=== PATIENT | male | born 1975 | race Caucasian/White ===

== ENCOUNTER 2021-12-21 11:29 | Outpatient (CLI) | payer BC, SELFPAY ==
--- NOTE | 2021-12-21 | CRLHL7_ITS ---
For Patients: As a result of the Century Cures Act, medical imaging exams and procedure reports are released immediately into your electronic medical record. You may view this report before your referring provider. If you have questions, please contact your health care provider. INDICATION: Two days of leg pain. FINDINGS: Right common femoral vein patent and compressible. Patent deep femoral vein and saphenous insertion. Echogenic noncompressible thrombus in the femoral vein through the popliteal vein into the trifurcation vessels. Left common femoral vein patent and compressible with normal color and spectral Doppler appearance. Preferred augmentation on spectral tracing with augmentation. IMPRESSION: Extensive DVT in the right lower extremity from proximal femoral vein into the trifurcation vessels of the calf. Preliminary report provided to the ordering clinician by the broiler supervisor at the time of exam. Ordering clinician paged with final results at the time of dictation 14:30 12/21/2021. Dictated by Rey Burger MD @ 12/21/2021 2:33:25 PM (Electronically Signed)
== END 2021-12-21 11:30 | disposition home or self-care (01) ==
LOC: US 11:31
PROVIDERS: PCP Internal Medicine; Visit Provider Family Medicine
DX: M79.604 Pain in right leg (principal); I82.411 Acute embolism and thrombosis of right femoral vein
CPT/HCPCS: 93971

== ENCOUNTER 2022-01-16 08:51 | Outpatient (CLI) | payer BC, SELFPAY ==
--- OUTSIDE RECORDS SUMMARY | 2022-01-16 09:08 | XMS_ITS | Encounter Summary ---
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 Administration [place] [address] (Primary Dx) [address] [address] [place], [place] [phone] (Work) [phone] Social History Tobacco Use Types Packs/Day Years Used Date Smoking Tobacco: Former Sex Assigned at Date Recorded Not on file documented as of this encounter Last Filed Vital Signs Vital Sign Reading Time Taken Comments Blood Pressure 134/88 12/16/2017 3:30 PM CDT Pulse 66 12/16/2017 3:30 PM CDT Temperature - - Respiratory Rate 18 12/16/2017 3:30 PM CDT Oxygen Saturation - - Inhaled Oxygen Concentration - - Weight 110 kg (242 lb) 12/16/2017 3:30 PM CDT Height 188 cm (6' 2) 12/16/2017 3:30 PM CDT Body Mass Index 31.07 12/16/2017 3:30 PM CDT documented in this encounter H&P Notes Rey Miller M.D., Ph.D. - 12/16/2017 4:30 PM CDT See scanned FAA exam forms. documented in this encounter Plan of Treatment Scheduled Orders Name Type Priority Associated Diagnoses Order S chedule AUDIOLOGY EVALUATION Audiology Ordered : 12/23/2017 documented as of this encounter Results (ABNORMAL) Urinalysis, Dipstick (12/16/2017 4:37 PM CDT) [facility] Source Midstream 12/16/2017 [facility] 4:[address] [facility] Clarity Slightly Clear 12/16/2017 [facility] Cloudy (A) 4:41 PM [facility] Color Carmenza 12/16/2017 [facility] 4:41 PM [facility] Comment: ----REFERENCE VALUE---- Colorless Yellow [place] Blood Negative Negative 12/16/2017 4:41 PM CDT [facility] Nitrite Negative Negative 12/16/2017 4:41 PM T [facility] Leukocyte Esterase Negative Negative 12/16/2017 4:41 PM CD [facility] Protein Negative mg/dL 12/16/2017 4:41 PM T [facility] Comment: ----REFERENCE VALUE---- Negative Trace Glucose Negative Negative mg/dL 12/16/2017 4:41 PM [facility] Ketones, QI(U) Trace (A) Negative mg/dL 12/16/2017 4:41 PM [facility] Bilirubin Negative Negative 12/16/2017 4:41 PM [facility] pH 5.5 5.0 - 8.0 12/16/2017 4:41 PM [facility] Specific [place] 1.025 1.001 - 1.035 12/16/2017 4:41 PM [facility] Urobilinogen 1.0 0.2 - 1.0 mg/dL 12/16/2017 4:41 PM [facility] Specimen Anatomical Collection Method Collection Time Receive d Time (Source) Location / / Volume Laterality Urine (Urine, 12/16/2017 4:37 PM 12/17/19 18 4:37 Clean Catch) CDT PM CDT Rey Miller M.D., Ph.D. LAB URINE ORDERABLES Performing Organization Address City/State/ZIP Code Phon e Number [facility] [id number] [address] [place] [facility] documented in this encounter Visit Diagnoses Diagnosis Federal Fun Cityation Administration Exam - P rimary documented in this encounter Care Teams University Services Program Associate Relationship Specialty Start Date End Date Elsewhere, Pcp PCP - General Family Medicine 12/16/17 documented as of this encounter
--- OUTSIDE RECORDS SUMMARY | 2022-01-16 09:08 | XMS_ITS | Encounter Summary ---
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 Administration [place] [address] (Primary Dx) [address] [address] [place], [place] [phone] (Work) [phone] Social History Tobacco Use Types Packs/Day Years Used Date Smoking Tobacco: Former Smokeless Tobacco: Never Sex Assigned at Date Recorded Not on file documented as of this encounter Last Filed Vital Signs Vital Sign Reading Time Taken Comments Blood Pressure 135/86 11/24/2018 1:57 PM CDT Pulse 88 11/24/2018 1:57 PM CDT Temperature 36.5 ??C (97.7 ??F) 11/24/2018 1:57 PM CDT Respiratory Rate 16 11/24/2018 1:57 PM CDT Oxygen Saturation 98% 11/24/2018 1:57 PM CDT Inhaled Oxygen Concentration - - Weight 121 kg (267 lb 13.7 oz) 11/24/2018 1:57 PM CDT Height 185.5 cm (6' 1.03) 11/24/2018 1:57 PM CDT Body Mass Index 35.31 11/24/2018 1:57 PM CDT documented in this encounter Progress Notes Rey Miller M.D., Ph.D. 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 documented in this encounter Plan of Treatment Not on filedocumented as of this encounter Results Urinalysis, Dipstick (11/24/2018 1:50 PM CDT) P athologist Signature Source Midstream 11/24/2018 1:53 PM CDT Clarity Clear Clear 11/24/2018 1:53 PM CDT Color Yellow 11/24/2018 1:53 PM CDT Comment: ----REFERENCE VALUE---- Colorless Yellow [place] Blood Negative Negative 11/24/2018 1:53 PM CDT Nitrite Negative Negative 11/24/2018 1:53 PM CDT Leukocyte Esterase Negative Negative 11/24/2018 1:53 PM CD T Protein Negative mg/dL 11/24/2018 1:53 PM CDT Comment: ----REFERENCE VALUE---- Negative Trace Glucose Negative Negative mg/dL 11/24/2018 1:53 PM CDT Ketones, QI(U) Negative Negative mg/dL 11/24/2018 1:53 PM C DT Bilirubin Negative Negative 11/24/2018 1:53 PM CDT pH 7.0 5.0 - 8.0 11/24/2018 1:53 PM CDT Specific [place] 1.020 1.001 - 1.035 11/24/2018 1:53 PM CDT Urobilinogen 0.2 0.2 - 1.0 mg/dL 11/24/2018 1:53 PM CD T Specimen Anatomical Collection Method Collection Time Receive d Time (Source) Location / / Volume Laterality Urine (Urine, 11/24/2018 1:50 PM 11/25/19 1:50 Voided) CDT PM CDT Rey Miller M.D., Ph.D. LAB URINE ORDERABLES Performing Organization Address City/State/ZIP Code Phon e Number [facility] [address] [place] [address] [place] [facility] documented in this encounter Visit Diagnoses Diagnosis Federal iRuleation Administration Exam - P rimary documented in this encounter Care Teams Ehs Manager Relationship Specialty Start Date End Date Elsewhere, Pcp PCP - General Family Medicine 12/16/17 documented as of this encounter
--- OUTSIDE RECORDS SUMMARY | 2022-01-16 09:08 | XMS_ITS | Encounter Summary ---
:1975 Author Organization [facility] Address [address] [place] [address] Care Team Providers Name Role Phone Unavailable Primary Care Provider Unavailable Encounter Details Date Type Department Care Team Description 11/30/2006 PN Conversion Only AIRPORT CONVERSION [address] [place] [address] Social History Tobacco Use Types Packs/Day Years Used Date Smoking Tobacco: Never Assessed Sex Assigned at Date Recorded Not on file documented as of this encounter Plan of Treatment Not on filedocumented as of this encounter Visit Diagnoses Not on filedocumented in this encounter
--- OUTSIDE RECORDS SUMMARY | 2022-01-16 09:08 | XMS_ITS | Encounter Summary ---
:1975 Author Organization [facility] Address [address] [place] [address] Care Team Providers Name Role Phone Unavailable Primary Care Provider Unavailable Encounter Details Date Type Department Care Team Description 09/22/2017 Lab Visit [facility] Counseling for travel; [address] Special screening examinatio [place] [address] Social History Tobacco Use Types Packs/Day Years Used Date Smoking Tobacco: Never Assessed Sex Assigned at Date Recorded Not on file documented as of this encounter Plan of Treatment Not on filedocumented as of this encounter Procedures Procedure Name Priority Date/Time Associated Diagnosis Comme nts RUBEOLA IMMUNE Routine 09/22/2017 10:32 AM Counseling for Resu lts for this STATUS, IGG CDT travel procedure are in Special screening the result s examination for section. viral disease MUMPS IMMUNE Routine 09/22/2017 10:32 AM Counseling for Result s for this STATUS, IGG CDT travel procedure are in Special screening the result s examination for section. viral disease documented in this encounter Results Rubeola Immune Status, IgG (09/22/2017 10:32 AM CDT) [facility] Method Time Signature Rubeola Immune Immune PN SOFT Intepretation Rubeola Units 147.0 >29.9 PN SOFT AU/mL Comment: The magnitude of the measured result, ab ove the cutoff, is not indicative of the amount of antibody present. Specimen Anatomical Collection Method Collection Time Receive d Time (Source) Location / / Volume Laterality 09/22/2017 10:32 09/22/2017 AM CDT 12:30 PM CDT Narrative PN SOFT - 09/22/2017 1:31 PM CDT Performed at [address] [address] CLIA number [id number] Stephenie Blandon TEAROOM HOSTESS, [facility]_1 Performing Organization Address [facility] Phon e Number PN SOFT [address] [place] [address] Mumps Immune Status, IgG (09/22/2017 10:32 AM CDT) [facility] Method Time Signature Mumps Immune Immune PN SOFT Intepretation Mumps Units 86.0 >10.9 PN SOFT AU/mL Comment: The magnitude of the measured result, ab ove the cutoff, is not indicative of the amount of antibody present. Specimen Anatomical Collection Method Collection Time Receive d Time (Source) Location / / Volume Laterality 09/22/2017 10:32 09/22/2017 AM CDT 12:30 PM CDT Narrative PN SOFT - 09/22/2017 1:31 PM CDT Performed at [facility], [address] [place] [address] CLIA number [id number] Stephenie Blandon APRN, [facility]_1 Performing Organization Address [facility] Phon e Number PN SOFT [address] [place] [address] [phone] documented in this encounter Visit Diagnoses Diagnosis Counseling for travel Other specified counseling Special screening examination for viral disease Special screening examination for unspec ified viral disease documented in this encounter
--- OUTSIDE RECORDS SUMMARY | 2022-01-16 09:08 | XMS_ITS | Encounter Summary ---
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 [address] [place] [phone] Capacity Management Specialist Annual Medicine, [place] [facility] in [address] [phone] Social History Tobacco Use Types Packs/Day Years Used Date Smoking Tobacco: Former Sex Assigned at Date Recorded Not on file documented as of this encounter Progress Notes Jalyn Almaraz L.P.N. 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 documented in this encounter Plan of Treatment Not on filedocumented as of this encounter Visit Diagnoses Not on filedocumented in this encounter Care Teams Soda Room Operator Relationship Specialty Start Date End Date Elsewhere, Pcp PCP - General Family Medicine 12/16/17 documented as of this encounter
--- OUTSIDE RECORDS SUMMARY | 2022-01-16 09:08 | XMS_ITS | Encounter Summary ---
:1975 Author Organization [facility] Address [address] [place] [address] Care Team Providers Name Role Phone Unavailable Primary Care Provider Unavailable Reason for Visit Reason Onset Date Comments Travel Consult 09/22/2017 Encounter Details Date Type Department Care Team Description 09/22/2017 Initial Consult [place] Travel Stephenie Wall unseling for travel; Clinic C, JOSHUA CARDOZA Need for hepatitis A and B vaccination; [address] Need for immunization agains t typhoid; [place] [address] [facility] Special screening examination for viral disease [phone] [place], [place] [address] Social History Tobacco Use Types Packs/Day Years Used Date Smoking Tobacco: Never Assessed Sex Assigned at Date Recorded Not on file documented as of this encounter Progress Notes Stephenie Wall, JOSHUA CARDOZA - 09/22/2017 9:58 AM CDT Subjective: Romeo Weir is a 41 y.o. male who presents to the clinic for travel consultation accompanied by spouse, children,. TRAVEL PLANS Planned departure date: October 12, 2017 Time in developing countries: 1 week. Countries of travel: [facility] Areas in country: rural and urban Traveling to Malarial area: no Reviewed Malarial risk map: yes Prior malarial chemoprophylaxis use: No Traveling to Yellow Fever area: no Accommodations: hotel, resort and lodge Purpose of travel: pleasure, celebrating parent (grandparent) 50th wedding anniversary. PRIOR HEALTH HISTORY Currently ill / Fever: no Currently taking antibiotics: no History of liver or kidney disease: No History of anxiety or depression: No History of cardiac arrhythmia or rhythm conduction abnormalities (QT prolongation): No History of GERD/IBS: Yes History of cancer: no Currently immune compromised or taking high dose steroids: No Other relevant travel health history: no There is no problem list on file for this patient. Allergies not on file No outpatient prescriptions prior to visit. No facility-administered medications prior to visit. Assessment: Contraindications to travel: no Plan: PATIENT EDUCATION Patient was given verbal and/or written information about: Dengue Fever, Diphtheria/Tetanus, Hepatitis A, Hepatitis B, HIV, Insect-related illnesses and prevention, Malaria, MMR, Rabies--post-exposure schedule, Sexually Transmitted Diseases, Travax/CDC information, Traveler's Diarrhea, Typhoid, Reviewed vaccine schedule and efficacy. Patient appears to understand all the information provided. Discussed the use of Pepto Bismol and Imodium (follow package insert) See below for vaccines and medications ordered this visit. Patient had no reaction. Patient declined: MMR, FOLLOW UP Laboratory Studies: send lab letter. Return To Clinic: For Twinrix #2 vaccine in 4 weeks. For Twinrix #3 vaccine in 6 months. Time spent on travel education Individual counselin minutes. IMMUNIZATIONS AND PRESCRIPTIONS Immunization counseling was provided for the vaccines that were administered at the visit Orders Placed This Encounter Procedures ??? HEP A-HEP B (TWINRIX, 18+ YRS) ??? TYPHOID (TYPHIM , IM) ??? Mumps Immune Status, IgG ??? Rubeola Immune Status, IgG Orders Placed This Encounter Medications ??? azithromycin (ZITHROMAX) 500 MG tablet Sig: Take 1 tab daily for 3 days as needed for severe travelers diarrhea. Dispense: 3 Tab Refill: 0 Immunization History Administered Date(s) Administered ??? Chicken Pox - History of Illness 12/01/1984 ??? HepA-HepB (TWINRIX, 18+ yrs) 09/22/2017 ??? Influenza (Fluarix 0.5, 3+ yrs or FluLaval 0.5) 01/27/2014, 02/07/2015 ??? Tdap 11/04/2010 ??? Typhoid (Typhim Vi, IM) 09/22/2017 documented in this encounter Plan of Treatment Not on filedocumented as of this encounter Results Rubeola Immune Status, IgG (09/22/2017 10:32 AM CDT) [facility] Method Time Signature Rubeola Immune Immune PN [...] - 09/22/2017 1:31 PM CDT Performed at [address] [address] CLIA number [id number] Stephenie Bladnon APRN, [facility]_1 Performing Organization Address [facility] e Number PN SOFT [address] [place] [address] Mumps Immune Status, IgG (09/22/2017 10:32 AM CDT) [facility] Method [place] Signature Mumps Immune Immune PN SOFT Intepretation [...] - 09/22/2017 1:31 PM CDT Performed at [address] [address] CLIA number [id number] Stephenie Blandon CHECK AIRMAN, [facility] Performing Organization Address [facility] e Number PN SOFT [address] [place] [address] documented in this encounter Visit Diagnoses Diagnosis Counseling for travel Other specified counseling Need for hepatitis A and B vaccination Need for prophylactic vaccination and in oculation against viral hepatitis Need for immunization against typhoid Need for other specified prophylactic va ccination against single bacterial disease Special screening examination for viral disease Special screening examination for unspec ified viral disease Counseling for travel Other specified counseling Special screening examination for viral disease Special screening examination for unspec ified viral disease documented in this encounter
--- OUTSIDE RECORDS SUMMARY | 2022-01-16 09:08 | XMS_ITS | Encounter Summary ---
:1975 Author Organization [facility] Address [address] [place] [address] Care Team Providers Name Role Phone Elsewhere, Pcp Primary Care Provider Unavailable Encounter Details Date Type Department Care Team Description 12/16/2017 Hospital Encounter Department of eRy Miller Federa l [facility] Laboratory Medicine MMukesh, Ph.D. Administration Exam in [address] [address] [place], [place] [phone] (Work) [phone] Social History Tobacco Use Types Packs/Day Years Used Date Smoking Tobacco: Former Sex Assigned at Date Recorded Not on file documented as of this encounter Medications at Time of Discharge Medication Sig Dispensed Refills Start Date End Date allopurinol (ZYLOPRIM) 300 mg Take 1 tablet by 0 11/21/2016 tablet mouth daily. amLODIPine (NORVASC) 10 mg Take 1 tablet by 0 03/201612/16/2021 tablet mouth daily. hydroCHLOROthiazide 0 10/31/201702/21 (HYDRODIURIL) 25 mg tablet documented as of this encounter Plan of Treatment Not on filedocumented as of this encounter Procedures Procedure Name Priority Date/Time Associated Diagnosis Comme nts URINALYSIS, Routine 12/16/2017 4:37 PM [employer] Aviation Resul ts for this DIPSTICK CDT Administration Exam procedur e are in the results section. documented in this encounter Results (ABNORMAL) Urinalysis, Dipstick (12/16/2017 4:37 PM CDT) Analysis Performed At [facility] Time Signature Source Midstream 12/16/2017 [facility] 4:41 PM T [facility] Clarity Slightly Clear 12/16/2017 [facility] Cloudy (A) 4:41 PM [facility] Color Carmenza 12/16/2017 [facility] 4:41 PM [facility] Comment: ----REFERENCE VALUE---- Colorless Yellow [place] Blood Negative Negative 12/16/2017 4:41 PM T [facility] Nitrite Negative Negative 12/16/2017 4:41 PM T [facility] Leukocyte Esterase Negative Negative 12/16/2017 4:41 PM CD [facility] Protein Negative mg/dL 12/16/2017 4:41 PM T [facility] Comment: ----REFERENCE VALUE---- Negative Trace Glucose Negative Negative mg/dL 12/16/2017 4:41 PM [facility] Ketones, QI(U) Trace (A) Negative mg/dL 12/16/2017 4:41 PM [facility] Bilirubin Negative Negative 12/16/2017 4:41 PM [facility] pH 5.5 5.0 - 8.0 12/16/2017 4:41 PM [facility] Specific [place] 1.025 1.001 - 1.035 12/16/2017 4:41 PM [facility] Urobilinogen 1.0 0.2 - 1.0 mg/dL 12/16/2017 4:41 PM [facility] Specimen Anatomical Collection Method Collection Time Receive d Time (Source) Location / / Volume Laterality Urine (Urine, 12/16/2017 4:37 PM 12/17/19 18 4:37 Clean Catch) CDT PM CDT Rey Miller M.D., Ph.D. LAB URINE ORDERABLES Performing Organization Address City/State/ZIP Code Phon e Number [facility] [id number] [address] [place] [facility] documented in this encounter Visit Diagnoses Diagnosis [employer] Exam documented in this encounter Care Teams Mortgage Assistant Relationship Specialty Start Date End Date Elsewhere, Pcp PCP - General Family Medicine 12/16/17 documented as of this encounter
--- OUTSIDE RECORDS SUMMARY | 2022-01-16 09:08 | XMS_ITS | Encounter Summary ---
:1975 Author Organization [facility] Address [address] [place] [address] Care Team Providers Name Role Phone Unavailable Primary Care Provider Unavailable Encounter Details Date Type Department Care Team Description 11/30/2006 Office Visit [place] Occup[employer] Wall, Robert Cabello MD Medicine [address] [facility] [address] [place] [address] [place] [address] (Wo rk) Social History Tobacco Use Types Packs/Day Years Used Date Smoking Tobacco: Never Assessed Sex Assigned at Date Recorded Not on file documented as of this encounter Plan of Treatment Not on filedocumented as of this encounter Visit Diagnoses Not on filedocumented in this encounter
--- OUTSIDE RECORDS SUMMARY | 2022-01-16 09:08 | XMS_ITS | Clinical Summary ---
:1975 Author Organization [facility] Address [address] [place] [address] Care Team Providers Name Role Phone Elsewhere, Pcp Primary Care Provider Unavailable Source Comments Patient records contain information from all sites at [facility]. For routine questions regarding patient records, call [phone] during business hours, M-F 8:00 AM - 5:00 PM Central Time. Record requests for emergency care only can be directed to [phone] at any time.[facility] Allergies No known active allergies Medications Medication Sig Dispensed Refills Start Date End Date Status allopurinol (ZYLOPRIM) Take 1 tablet by 0 11/21/2016 Active 300 mg tablet mouth daily. lisinopril-hydroCHLOROt Take 1 tablet by 0 0 Active hiazide mouth daily. (PRINZIDE,ZESTORETIC) 20-25 mg per tablet Encounters Date Type Specialty Care Team Description 12/16/2021 Office Visit Family Medicine Federal Lo Miller M.D., Administration Exam Ph.D. (Primary Dx) 12/16/2021 Hospital Encounter Laboratory Medicine Vesna Miller M.D., Administration Exam Ph.D. 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 Oxygen Saturation 98% 12/16/2021 1:46 PM CDT Inhaled Oxygen Concentration - - Weight 114 kg (251 lb 12.3 oz) 12/16/2021 1:46 PM CDT Height 186 cm (6' 1.23) 12/16/2021 1:46 PM CDT Body Mass Index 33.01 12/16/2021 1:46 PM CDT Plan of Treatment Health Maintenance Due Date Last Done Comments CT Colonography 1975 Cologuard 1975 Colonoscopy 1975 Colorectal Cancer Screening 1975 Creatinine Level 1975 FIT 1975 Fasting Glucose for 1975 Diabetes Screening HIV Screening 1975 Hepatitis C Screening 1975 Lipid (Cholesterol) 1975 Screening Potassium Level 1975 Sodium Level 1975 Hepatitis B Vaccines (2 of 10/20/2017 09/22/2017 3 - Hep B Twinrix 3-dose series) Depression Screening 03/23/2021 (Annual PHQ-2) COVID-19 Vaccine (4 - 05/27/2021 04/01/2021, 06/28/2020, Booster for Pfizer series) 06/07/2020 Influenza Vaccine (#1) 2021 12/27/2020, 11/30/2018, 11/09/2018, Additional history exists DTaP,Tdap,and Td Vaccines 12/27/2030 12/27/2020, 11/04/2010 (3 - Td or Tdap) Pneumococcal vaccine (0-64 Aged Out No lo nger eligible years) based on patient 's age to complete this topic Procedures Procedure Name Priority Date/Time Associated Diagnosis Comme nts URINALYSIS, Routine 12/16/2021 1:17 PM [employer] Resul ts for this DIPSTICK CDT Administration Exam procedur e are in the results section. from Last 3 Months Results Urinalysis, Dipstick (12/16/2021 1:17 PM CDT) athologist Signature Source Urine, 12/16/2021 CNFL Urine, 1:17 PM CDT Voided Clarity Clear Clear 12/16/2021 CNFL 1:27 PM CDT Color Yellow 12/16/2021 CNFL 1:27 PM CDT Comment: ----REFERENCE VALUE---- Colorless Yellow Carmenza Blood Negative Negative 12/16/2021 1:27 PM CDT CNFL Nitrite Negative Negative 12/16/2021 1:27 PM CDT CNFL Leukocyte Esterase Negative Negative 12/16/2021 1:27 PM CD T CNFL Protein Negative mg/dL 12/16/2021 1:27 PM CDT CNFL Comment: ----REFERENCE VALUE---- Negative Trace Glucose Negative Negative mg/dL 12/16/2021 1:27 PM CDT CN FL Ketones, QI(U) Negative Negative mg/dL 12/16/2021 1:27 PM C DT CNFL Bilirubin Negative Negative 12/16/2021 1:27 PM CDT CNFL pH 6.5 5.0 - 8.0 12/16/2021 1:27 PM CDT CNFL Specific [place] 1.010 1.001 - 1.035 12/16/2021 1:27 PM CDT CNFL Urobilinogen 0.2 0.2 - 1.0 mg/dL 12/16/2021 1:27 PM CD T CNFL Specimen Anatomical Collection Method Collection Time Receive d Time (Source) Location / / Volume Laterality Urine (Urine, 12/16/2021 1:17 PM 12/17/19 22 1:17 Voided) CDT PM CDT Rey Miller M.D., Ph.D. LAB URINE ORDERABLES Performing Organization Address City/State/ZIP Code Phon e Number [facility]- [address] [place] [address] [place] [address] System [address] from Last 3 Months Insurance Payer Benefit Plan / Subscriber ID Effective Dates Phone Addre ss Type Group [facility] BC [id number] 2008-Present PPO SHIELD BASIC/FOCUS Care Teams Manager Family Relationship Specialty Start Date End Date Elsewhere, Pcp PCP - General Family Medicine 12/16/17
--- OUTSIDE RECORDS SUMMARY | 2022-01-16 09:08 | XMS_ITS | Clinical Summary ---
:1975 Author Organization [facility] Address [address] [place] [address] Care Team Providers Name Role Phone Unavailable Primary Care Provider Unavailable Source Comments You are receiving this document as you are listed as the primary care provider,follow-up provider, or the patient has been referred to you for consultation.This is in compliance with the Medicare and Medicaid EHR Incentive Program,which states Providers who transition their patient to another setting of careor provider of care or refers their patient to another provider of care shouldprovide summarycare record for each transition of care or referral. [facility] Allergies No known active allergies Medications Medication Sig Dispensed Refills Start Date End Date Status hydroCHLOROthiazide Take 25 mg by 3 07/29/2017 Active (ORETIC) 25 MG tablet mouth daily. amLODIPine (NORVASC) 10 Take 10 mg by 3 07/29/2017 Active MG tablet mouth daily. allopurinol (ZYLOPRIM) Take 300 mg by 3 06/19/2017 Active 300 MG tablet mouth daily. azithromycin (ZITHROMAX) Take 1 tab 3 Tab 0 09/22/2017 Active 500 MG tabletIndications: daily for 3 Counseling for travel days as needed for severe travelers diarrhea. Active Problems No known active problems Immunizations Name Administration Dates Next Due Chicken Pox - History of Illness 12/01/1984 HepA-HepB (T[place], 18+ yrs) 09/22/2017 Influenza IIV4 (Quadrivalent) 0.5mL (56825) 02/07/2015, 09/2013 Positive Measles Titer 09/22/2017 Positive Mumps Titer 09/22/2017 Tdap 11/04/2010 Typhoid (Typhim Vi, IM) 09/22/2017 Social History Tobacco Use Types Packs/Day Years Used Date Smoking Tobacco: Never Assessed Sex Assigned at Date Recorded Not on file Plan of Treatment Health Maintenance Due Date Last Done Comments Colon Cancer Screening Plan 1975 Due Hep C Screening (Preventive 1975 Services) COVID-19 Vaccine (#1) 05/31/1976 HIV Screening (Preventive 1991 Services) Adult Preventive Visit 12/01/1993 Cholesterol 12/01/2010 HepA (2 of 3 - Hep A 10/20/2017 09/22/2017 Twinrix risk 3-dose series) HepB (2) 10/20/2017 09/22/2017 DTaP/Tdap/Td (2 - Tdap) 11/04/2020 11/04/2010 Influenza (#1) 2021 11/30/2018, 11/09/2018, 02/10/2018, Additional history exists Zoster/Shingles (1 of 2) 12/01/2025 Hib Aged Out No longer eligib le based on patient 's age to complete this topic IPV (Polio) Aged Out No longer eligib le based on patient 's age to complete this topic MCV4 Aged Out No longer eligib le based on patient 's age to complete this topic Pneumococcal Aged Out No longer eligib le based on patient 's age to complete this topic Insurance Payer Benefit Plan / Subscriber ID Effective Dates Phone Addre ss Type Group BCBS BCBS FEDERAL [id number] 2008-Present [phone] [address] X [id number] Commercial 2 [phone]
--- OUTSIDE RECORDS SUMMARY | 2022-01-16 09:08 | XMS_ITS | Encounter Summary ---
:1975 Author Organization [facility] Address [address] [place] [address] Care Team Providers Name Role Phone Unavailable Primary Care Provider Unavailable Encounter Details Date Type Department Care Team Description 11/21/[address] [facility] Александр Miller M.D., Ph.D. [address] [place] [phone] (Wo rk) Social History Tobacco Use Types Packs/Day Years Used Date Smoking Tobacco: Never Assessed Sex Assigned at Date Recorded Not on file documented as of this encounter Medications at Time of Discharge Medication Sig Dispensed Refills Start Date End Date allopurinol (ZYLOPRIM) Take 1 tablet by 0 017 300 mg tablet mouth daily. amLODIPine (NORVASC) 10 Take 1 tablet by 0 201612/16/2021 mg tablet mouth daily. documented as of this encounter Plan of Treatment Not on filedocumented as of this encounter Procedures Procedure Name Priority Date/Time Associated Diagnosis Comme nts ECG Routine 11/21/2016 3:30 PM Results f or this CDT procedure are i n the results section . documented in this encounter Results ECG 12 Lead (11/21/2016 3:30 PM CDT) Specimen (Source) Anatomical Collection Method Collection Time Re ceived Time Location / / Volume Laterality 11/21/2016 3:30 PM CDT [facility] - 11/21/2016 3:30 PM CDT Test Reason : ATC Blood Pressure : / mmHG Vent. Rate : 065 BPM ? Atrial Rate : 065 BPM ?? P-R Int : 170 ms ?QRS D ur : 092 ms ?QT Int : 414 ms ? P-R-T Axe s : -10 008 -01 degrees ?? QTc Int : 430 ms Normal sinus rhythm Normal ECG No previous ECGs available ECG transmitted to FAA ?? Referred By: KHUSHI MILLER ? Confirmed By:JUAN ALBERTO ALEMAN ?? Procedure Note Provider, Kwame Paz - 12/24/2016F ormatting of this note might be different from the original. Test Reason : ATC Blood Pressure : / mmHG Vent. Rate : 065 BPM Atrial Rate : 065 B PM P-R Int : 170 ms QRS Dur : 092 ms QT Int : 414 ms P-R-T Axes : -10 008 -0 1 degrees QTc Int : 430 ms Normal sinus rhythm Normal ECG No previous ECGs available ECG transmitted to FAA Referred By: KHUSHI MILLER Confirmed By:Jim ALEMAN MD Juan Alberto Aleman M.D. ECG ORDERABLES Performing Organization Address City/State/ZIP Code Phon e Number [facility] [address] [place] [id number] documented in this encounter Visit Diagnoses Not on filedocumented in this encounter
--- OUTSIDE RECORDS SUMMARY | 2022-01-16 09:08 | XMS_ITS | Encounter Summary ---
:1975 Author Organization [facility] Address [address] [place] [address] Care Team Providers Name Role Phone Elsewhere, Pcp Primary Care Provider Unavailable Encounter Details Date Type Department Care Team Description 11/23/2020 Hospital Encounter Department of Rey Miller Federa l [employer] Laboratory Medicine Kwame, Ph.D. Administration Exam in [address] [address] [place], [place] [phone] (Work) [phone] Social History Tobacco Use Types Packs/Day Years Used Date Smoking Tobacco: Former Smokeless Tobacco: Never Sex Assigned at Date Recorded Not on file documented as of this encounter Medications at Time of Discharge Medication Sig Dispensed Refills Start Date End Date allopurinol (ZYLOPRIM) Take 1 tablet by 0 017 300 mg tablet mouth daily. lisinopril-hydroCHLOROthi Take 1 tablet by 0 11/21 azide mouth daily. (PRINZIDE,ZESTORETIC) 20-25 mg per tablet amLODIPine (NORVASC) 10 Take 1 tablet by 0 201612/16/2021 mg tablet mouth daily. documented as of this encounter Plan of Treatment Not on filedocumented as of this encounter Procedures Procedure Name Priority Date/Time Associated Diagnosis Comme nts URINALYSIS, Routine 11/23/2020 10:45 [place] Results for this DIPSTICK AM CDT Administration Exam procedur e are in the results section. documented in this encounter Results (ABNORMAL) Urinalysis, Dipstick (11/23/2020 10:45 AM CDT) athologist Signature Source Midstream 11/23/2020 CNFL 10:51 AM CDT Clarity Clear Clear 11/23/2020 CNFL 10:51 AM CDT Color Yellow 11/23/2020 CNFL 10:51 AM CDT Comment: ----REFERENCE VALUE---- Colorless Yellow Carmenza Blood Negative Negative 11/23/2020 10:51 AM CDT CNFL Nitrite Negative Negative 11/23/2020 10:51 AM CDT CNFL Leukocyte Esterase Trace (A) Negative 11/23/2020 10:51 AM C DT CNFL Protein Negative mg/dL 11/23/2020 10:51 AM CDT CNFL Comment: ----REFERENCE VALUE---- Negative Trace Glucose Negative Negative mg/dL 11/23/2020 10:51 AM CDT C NFL Ketones, QI(U) Negative Negative mg/dL 11/23/2020 10:51 AM CDT CNFL Bilirubin Negative Negative 11/23/2020 10:51 AM CDT CNFL pH 7.0 5.0 - 8.0 11/23/2020 10:51 AM CDT CNFL Specific [place] 1.025 1.001 - 1.035 11/23/2020 10:51 AM CDT CNFL Urobilinogen 0.2 0.2 - 1.0 mg/dL 11/23/2020 10:51 AM C DT CNFL Specimen Anatomical Collection Method Collection Time Receive d Time (Source) Location / / Volume Laterality Urine (Urine, 11/23/2020 10:45 11/23/2020 Voided) AM CDT 10:45 AM CDT Rey Miller M.D., Ph.D. 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
--- OUTSIDE RECORDS SUMMARY | 2022-01-16 09:08 | XMS_ITS | Encounter Summary ---
:[address] [facility] Address [address] [place] [address] Care Team Providers Name Role Phone Elsewhere, Pcp Primary Care Provider Unavailable Reason for Visit Reason Comments Flightn Physical ATC: [phone] Appointment Request (Routine) - Closed Specialty Diagnoses / Procedures Referred By Contact Refer red To Contact Family Medicine Referral ID Status Reason Start Date Expiration Date Visits Requ ested Visits Authorized [id number] Closed 11/01/2021 11/01/2022 1 1 Encounter Details Date Type Department Care Team Description 12/16/2021 Office Visit Department of [facility] Rey Miller Feder mt Aviation MedicineBeck M.D., Ph.D. Administration [place] [address] (Primary Dx) [address] [address] [place], [place] [phone] (Work) [phone] Social History Tobacco Use Types Packs/Day Years [...] ??F) 12/16/2021 1:46 PM CDT Respiratory Rate - - Oxygen Saturation 98% 12/16/2021 1:46 PM CDT Inhaled Oxygen Concentration - - Weight 114 kg (251 lb 12.3 oz) 12/16/2021 1:46 PM CDT Height 186 cm (6' 1.23) 12/16/2021 1:46 PM CDT Body Mass Index 33.01 12/16/2021 1:46 PM CDT documented in this encounter Progress Notes Rey Miller M.D. - 12/16/2021 1:30 PM CDT See FAA [facility] site for forms. documented in this encounter Plan of Treatment Scheduled Orders Name Type Priority Associated Diagnoses Order S chedule AUDIOLOGY EVALUATION Audiology Ordered : 12/19/2021 documented as of this encounter Results Urinalysis, Dipstick (12/16/2021 1:17 PM CDT) P athologist Signature Source Urine, 12/16/2021 CNFL Urine, [...] 8.0 12/16/2021 1:27 PM CDT CNFL Specific [place] 1.010 1.001 - 1.035 12/16/2021 1:27 PM CDT CNFL Urobilinogen 0.2 0.2 - 1.0 mg/dL 12/16/2021 1:27 PM CD T CNFL Specimen Anatomical Collection Method Collection Time Receive d Time (Source) Location / / Volume Laterality Urine (Urine, 12/16/2021 1:17 PM 09/26/20 22 1:17 Voided) CDT PM CDT Rey Miller M.D., Ph.D. LAB URINE ORDERABLES Performing Organization Address City/State/ZIP Code Phon e Number [facility]- [address] [place] [address] [place] [address] System in [address] documented in this encounter Visit Diagnoses Diagnosis [employer] Exam - P rimary documented in this encounter Care Teams Set O Type Operator Relationship Specialty Start Date End Date Elsewhere, Pcp PCP - General Family Medicine 12/16/17 documented as of this encounter
--- OUTSIDE RECORDS SUMMARY | 2022-01-16 09:08 | XMS_ITS | Encounter Summary ---
:1975 Author Organization [facility] Address [address] [place] [address] Care Team Providers Name Role Phone Elsewhere, Pcp Primary Care Provider Unavailable Encounter Details Date Type Department Care Team Description 02/22/2020 Hospital Encounter Department of Rey Miller Federa l [email or web address] Laboratory Medicine Kwame, Ph.D. Administration Exam in [address] [address] [place], [place] [phone] (Work) [phone] Social History Tobacco Use Types Packs/Day Years [...] Date/Time Associated Diagnosis Comme nts URINALYSIS, Routine 02/22/2020 2:26 PM [employer] Resul ts for this DIPSTICK [employer] Administration Exam procedur e are in the results section. documented in this encounter Results (ABNORMAL) Urinalysis, Dipstick (02/22/2020 2:26 PM [employer]TING [employer]) P athologist Signature Source Midstream 02/22/2020 CNFL 2:40 PM [employer] Clarity Clear Clear 02/22/2020 CNFL 2:40 PM [employer] Color Yellow 02/22/2020 CNFL 2:40 PM [employer] Comment: ----REFERENCE VALUE---- Colorless Yellow Carmenza Blood Negative Negative 02/22/2020 2:40 PM [employer] CNFL Nitrite Negative Negative 02/22/2020 2:40 PM [employer] CNFL Leukocyte Esterase Small (A) Negative 02/22/2020 2:40 PM CS T CNFL Protein Negative mg/dL 02/22/2020 2:40 PM [employer] CNFL Comment: ----REFERENCE VALUE---- Negative Trace Glucose 250 (A) Negative mg/dL 02/22/2020 2:40 PM [employer] CN FL Ketones, QI(U) Negative Negative mg/dL 02/22/2020 2:[address] CNFL Bilirubin Negative Negative 02/22/2020 2:40 PM [employer]TING [employer]ER[employer] CNFL pH 5.0 5.0 - 8.0 02/22/2020 2:40 PM BETTING [employer]ERKS CNFL Specific [place] 1.010 1.001 - 1.035 02/22/2020 2:40 PM [employer]TING [employer]ER[employer] CNFL Urobilinogen 1.0 0.2 - 1.0 mg/dL 02/22/2020 2:40 PM CS T CNFL Specimen Anatomical Collection Method Collection Time Receive d Time (Source) Location / / Volume Laterality Urine (Urine, 02/22/2020 2:26 PM 02/22/20 20 2:34 Voided) BETTING [employer]ERKS PM BETTING [employer]ERKS Rey Miller M.D., Ph.D. 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
--- OUTSIDE RECORDS SUMMARY | 2022-01-16 09:08 | XMS_ITS | Encounter Summary ---
:1975 Author Organization [facility] Address [address] [place] [address] Care Team Providers Name Role Phone Elsewhere, Pcp Primary Care Provider Unavailable Reason for Referral Outpatient (Routine) - Closed Specialty Diagnoses / Procedures Referred By Contact Refer red To Contact Diagnoses [facility] [employer] [facility] Exam Rey Miller M.D., [facility] Procedures ECG FAA Ph.D. [address] [place] [phone] Referral ID Status Reason Start Date Expiration Date Visits Requ ested Visits Authorized [id number] Closed 11/23/2020 11/23/2021 1 1 Reason for Visit Reason Comments ATC Physical Exam confirmation #: [id number] Appointment Request (Routine) - Closed Specialty Diagnoses / Procedures Referred By Contact Refer red To Contact Family Medicine Referral ID Status Reason Start Date Expiration Date Visits Requ ested Visits Authorized [id number] Closed 10/23/2020 10/23/2021 1 1 Encounter Details Date Type Department Care Team Description 11/23/2020 Office Visit Department of Rey Triana Feder hi Aviation Beck Jane M.D., Ph.D. Administration Exam [place] [address] (Primary Dx) [address] [address] [place], [place] [phone] (Work) [phone] Social History Tobacco Use Types Packs/Day Years Used Date Smoking Tobacco: Former Smokeless Tobacco: Never Sex Assigned at Date Recorded Not on file documented as of this encounter Last Filed Vital Signs Vital Sign Reading Time Taken Comments Blood Pressure 136/88 11/23/2020 10:53 AM CDT Pulse 65 11/23/2020 10:53 AM CDT Temperature - - Respiratory Rate - - Oxygen Saturation - - Inhaled Oxygen Concentration - - Weight 117 kg (257 lb 15 oz) 11/23/2020 10:53 AM CDT Height 185.5 cm (6' 1.03) 11/23/2020 10:53 AM CDT Body Mass Index 34 11/23/2020 10:53 AM CDT documented in this encounter Progress Notes Rey Miller M.D., Ph.D. - 11/23/2020 11:00 AM CDT See scanned FAA exam forms. documented in this encounter Plan of Treatment Scheduled Orders Name Type Priority Associated Diagnoses Order S chedule AUDIOLOGY EVALUATION Audiology Ordered : 11/29/2020 documented as of this encounter Procedures Procedure Name Priority Date/Time Associated Diagnosis Comme nts ECG FAA Routine 11/23/2020 11:23 AM [facility] Aviation Resu lts for this CDT Administration Exam procedur e are in the results section. documented in this encounter Results ECG FAA (11/23/2020 11:23 AM CDT) P athologist Signature Ventricular Rate 61 BPM MUSE ECG/Min NV Interval 170 ms MUSE QRSD Interval 86 ms MUSE QT Interval 406 ms MUSE QTC Interval 408 ms MUSE P [place] -17 degrees MUSE R [place] 14 degrees MUSE T Wave [place] 6 degrees MUSE Specimen Anatomical Collection Method Collection Time Receive d Time (Source) Location / / Volume Laterality 11/23/2020 11:23 11/23/2020 AM CDT 11:33 AM CDT Impressions MUSE - 11/23/2020 11:34 AM CDT Normal sinus rhythm Normal ECG When compared with ECG of 21-NOV-2016 15 :30, No significant change was found Reviewed by MARCOS Vang ECG transmitted to FAA Narrative This result has an attachment that is no t available. Procedure Note Jonnie Loaiza M.D., Ph.D. - 1 IMPRESSION: Normal sinus rhythm Normal ECG When compared with ECG of 21-NOV-2016 15 :30, No significant change was found Reviewed by MARCOS Vang ECG transmitted to FAA Rey Miller M.D., Ph.D. ECG ORDERABLES Performing Organization Address City/State/ZIP Code Phon e Number MUSE MUSE NA (ABNORMAL) Urinalysis, Dipstick (11/23/2020 10:45 AM CDT) P athologist Signature Source Midstream 11/23/2020 CNFL 10:51 [...] 8.0 11/23/2020 10:51 AM CDT CNFL Specific [place] 1.025 1.001 - 1.035 11/23/2020 10:51 AM CDT CNFL Urobilinogen 0.2 0.2 - 1.0 mg/dL 11/23/2020 10:51 AM C DT CNFL Specimen Anatomical Collection Method Collection Time Receive d Time (Source) Location / / Volume Laterality Urine (Urine, 11/23/2020 10:45 11/23/2020 Voided) AM CDT 10:45 AM CDT Rey Miller M.D., Ph.D. 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
--- OUTSIDE RECORDS SUMMARY | 2022-01-16 09:08 | XMS_ITS | Encounter Summary ---
:1975 Author Organization [facility] Address [address] [place] [address] Care Team Providers Name Role Phone Elsewhere, Pcp Primary Care Provider Unavailable Encounter Details Date Type Department Care Team Description 12/16/2021 Hospital Encounter Department of [facility] [employer] [facility] Medicine Kwame, Ph.D. Administration Exam in [address] [address] [place], [place] [id number] (Work) [phone] Social History Tobacco Use Types Packs/Day Years Used Date Smoking Tobacco: Former Smokeless Tobacco: Never Sex Assigned at Date Recorded Not on file documented as of this encounter Medications at Time of Discharge Medication Sig Dispensed Refills Start Date End Date allopurinol (ZYLOPRIM) 300 Take 1 tablet by 0 03/2016 mg tablet mouth daily. lisinopril-hydroCHLOROthia Take 1 tablet by 0 zide (PRINZIDE,ZESTORETIC) mouth daily. 20-25 mg per tablet documented as of this encounter Plan of Treatment Not on filedocumented as of this encounter Procedures Procedure Name Priority Date/Time Associated Diagnosis Comme nts URINALYSIS, Routine 12/16/2021 1:17 PM [facility] Resul ts for this DIPSTICK CDT Administration Exam procedur e are in the results section. documented in this encounter Results Urinalysis, Dipstick (12/16/2021 1:17 [...] 8.0 12/16/2021 1:27 PM CDT [facility] Specific [place] 1.010 1.001 - 1.035 12/16/2021 1:27 PM CDT [facility]FL Urobilinogen 0.2 0.2 - 1.0 mg/dL 12/16/2021 1:27 PM CD T [facility] Specimen Anatomical Collection Method Collection Time Receive d Time (Source) Location / / Volume Laterality Urine (Urine, 12/16/2021 1:17 PM 12/17/19 1:17 Voided) CDT PM CDT Rey Miller M.D., Ph.D. LAB URINE ORDERABLES Performing Organization Address City/State/ZIP Code Phon e Number [id number] [address] [place] [id number] [place] [address] [address] documented in this encounter Visit Diagnoses Diagnosis [employer] Exam documented in this encounter Care Teams Psychology Professor Relationship Specialty Start Date End Date Elsewhere, Pcp PCP - General Family Medicine 12/16/17 documented as of this encounter
--- OUTSIDE RECORDS SUMMARY | 2022-01-16 09:09 | XMS_ITS | Encounter Summary ---
:1975 Author Organization [facility] Address [address], [place] [address] Care Team Providers Name Role Phone Unavailable Primary Care Provider Unavailable Encounter Details Date Type Department Care Team Description 01/10/2000 PN Conversion Only [facility] CONVERSION Non Pn, Clinician, [facility] [place] [address] Social History Tobacco Use Types Packs/Day Years Used Date Smoking Tobacco: Never Assessed Sex Assigned at Date Recorded Not on file documented as of this encounter Plan of Treatment Not on filedocumented as of this encounter Procedures Procedure Name Priority Date/Time Associated Diagnosis Comme nts [employer] Routine 01/10/2000 10:20 AM Resul ts for this PROFILE 2 CDT procedure are i n the results section. documented in this encounter Results [employer] Profile 2 (01/10/2000 10:20 AM CDT) [facility] Method Time Signature Aspartate 29 0 - 45 HP CONVERSION Aminotransferase U/L Lab Glucose 95 60 - 109 HP CONVERSION mg/dL Bilirubin Total 0.7 0.2 - 1.2 HP CONVERSION mg/dL Chloride 105 98 - 110 HP CONVERSION meq/L Potassium 4.0 3.5 - 5.2 HP CONVERSION meq/L Sodium 141 137 - 147 HP CONVERSION meq/L Blood Urea Nitrogen 10 5 - 26 HP CONVERS ION mg/dL Albumin 4.2 3.0 - 5.0 HP CONVERSION g/dL Calcium 9.7 8.5 - HP CONVERSION 10.5 mg/dL Alk Phos 106 50 - 136 HP CONVERSION U/L Protein Total, Serum 7.7 5.7 - 8.3 HP CONVER FERNANDO gm/dL Creatinine Serum 1.0 0.5 - 1.5 HP CONVERSION mg/dL Bicarbonate 25 23 - 33 HP CONVERSION mmol/L Cholesterol 199 125 - 199 HP CONVERSION mg/dL Triglycerides 144 0 - 250 HP CONVERSION mg/dL Gamma-Glutamyl 70 5 - 85 HP CONVERSION Transferase U/L Uric Acid Serum 8.2 2.5 - 8.5 HP CONVERSION mg/dL Phosphorus Serum 3.0 2.5 - 4.5 HP CONVERSION mg/dL Specimen (Source) Anatomical Collection Method Collection Time Re ceived Time Location / / Volume Laterality 01/10/2000 10:20 AM CDT Clinician Non Pn LAB_1 Performing Organization Address City/State/ZIP Code Phon e Number HP CONVERSION documented in this encounter Visit Diagnoses Not on filedocumented in this encounter
--- OUTSIDE RECORDS SUMMARY | 2022-01-16 09:09 | XMS_ITS | Clinical Summary ---
:1975 Author Organization [facility] [place] [address] Care Team Providers Name Role Phone Guanako Brooks MD Primary Care Provider Allergies No known active allergies Medications Medication Sig Dispensed Refills Start Date End Date Status allopurinol (ZYLOPRIM) 300 Take 1 tablet 0 3 Active mg tablet by mouth once daily. amLODIPine (NORVASC) 10 mg Take 1 tablet 0 3 Active tablet by mouth once daily. hydrochlorothiazide (HCTZ) Take 1 tablet 0 3 Active 25 mg tablet by mouth once daily. Active Problems Not on file Social History Tobacco Use Types Packs/Day Years Used Date Never Smoker Smokeless Tobacco: Never Used Alcohol Use Standard Drinks/Week Comments Not Asked 0 (1 standard drink = 0.6 oz pure alcoho l) Sex Assigned at Date Recorded Not on file Obstetrics History Last Filed Vital Signs Vital Sign Reading Time Taken Comments Blood Pressure 128/90 11/26/2012 2:17 PM CDT Pulse 82 11/26/2012 1:26 PM CDT Temperature - - Respiratory Rate - - Oxygen Saturation - - Inhaled Oxygen Concentration - - Weight 99.1 kg (218 lb 8 oz) 11/26/2012 1:26 PM CDT Height 182.9 cm (6') 11/26/2012 1:26 PM CDT Body Mass Index 29.63 11/26/2012 1:26 PM CDT Plan of Treatment Health Maintenance Due Date Last Done Comments COVID-19 vaccine series (#1) 05/31/1976 Tdap 12/01/1986 Depression screening for age 12+ 1987 BMI (ht and wt on same day) for age 18+ 12/01/1993 Hepatitis C screening for age 18-79 12/01/1993 Tetanus booster 1995 Colonoscopy through age 75 12/01/2020 Lipids for age 45-75 12/01/2020 Influenza for age 9-49 11/21/2021 Results Not on filefrom Last 3 Months Care Teams Credit And Collections Representative Relationship Specialty Start Date End Date Guanako Brooks MD PCP - General 11/26/12
[2022-01-16 11:48] LABS: Creatinine Urine 72.3 mg/dL
[2022-01-16 11:53] LABS: Microalbumin Creatinine Ratio 10 mg/g (0-30); Microalbumin Urine 1 mg/dL
[2022-01-16 12:06] LABS: Albumin* 4.9 g/dL (3.3-5.0); Chloride* 104 mmol/L (96-114)
[2022-01-16 12:07] LABS: Potassium* 4.4 mmol/L (3.6-5.1); Sodium* 137 mmol/L (135-149)
[2022-01-16 12:09] LABS: Aspartate Amino Transferase* 27 U/L (12-35); Bilirubin Total* 1.1 mg/dL (0.1-1.5); Blood Urea Nitrogen* 11 mg/dL (5-24); Carbon Dioxide* 23 mmol/L (20-32); Cholesterol* 211 mg/dL (90-199); Creatinine* 0.7 mg/dL (0.5-1.5); Estimated Glomerular Filt Rate 115 ml/min; Total Protein* 7.8 g/dL (6.0-8.3)
[2022-01-16 12:10] LABS: Alanine Aminotransferase* 32 U/L (4-50); Alkaline Phosphatase* 112 U/L (40-150); Calcium* 9.4 mg/dL (8.4-10.6); Glucose* 177 mg/dL (60-115); HDL Cholesterol* 47 mg/dL (>=40); LDL Cholesterol Calculated 133 mg/dL (<100); Triglycerides* 156 mg/dL (40-149)
== END 2022-01-16 08:52 | disposition home or self-care (01) ==
PROVIDERS: PCP Internal Medicine; Visit Provider Internal Medicine
DX: R73.9 Hyperglycemia, unspecified (principal); I10 Essential (primary) hypertension; M10.9 Gout, unspecified
CPT/HCPCS: 80053; 80061; 82043; 82570

== ENCOUNTER 2022-04-22 10:11 | Outpatient (CLI) | payer OTHER, SELFPAY ==
[2022-04-22 12:47] LABS: Albumin* 4.6 g/dL (3.3-5.0); Chloride* 106 mmol/L (96-114); Potassium* 4.3 mmol/L (3.6-5.1); Sodium* 142 mmol/L (135-149)
[2022-04-22 12:49] LABS: Carbon Dioxide* 26 mmol/L (20-32); Cholesterol* 211 mg/dL (90-199); Creatinine* 0.6 mg/dL (0.5-1.5); Estimated Glomerular Filt Rate 121 ml/min; Total Protein* 7.7 g/dL (6.0-8.3)
[2022-04-22 12:50] LABS: Alanine Aminotransferase* 40 U/L (4-50); Alkaline Phosphatase* 83 U/L (40-150); Aspartate Amino Transferase* 29 U/L (12-35); Blood Urea Nitrogen* 10 mg/dL (5-24); Calcium* 9.7 mg/dL (8.4-10.6); Glucose* 135 mg/dL (60-115); HDL Cholesterol* 56 mg/dL (>=40); LDL Cholesterol Calculated 124 mg/dL (<100); Triglycerides* 154 mg/dL (40-149)
[2022-04-22 13:19] LABS: PSA Screen* 1.11 ng/mL (0.10-4.00)
== END 2022-04-22 10:12 | disposition home or self-care (01) ==
PROVIDERS: PCP Internal Medicine; Visit Provider Internal Medicine
DX: E11.9 Type 2 diabetes mellitus without complications (principal); I10 Essential (primary) hypertension; R03.0 Elevated blood-pressure reading, without diagnosis of hypertension; M10.9 Gout, unspecified; R73.9 Hyperglycemia, unspecified; Z12.5 Encounter for screening for malignant neoplasm of prostate; Z13.6 Encounter for screening for cardiovascular disorders
CPT/HCPCS: 80053; 80061; 82043; 82570; 84153

== ENCOUNTER 2022-04-23 08:52 | Outpatient (CLI) | payer OTHER, SELFPAY ==
[2022-04-23 11:06] LABS: Creatinine Urine 118.8 mg/dL
[2022-04-23 11:10] LABS: Microalbumin Creatinine Ratio 0 mg/g (0-30); Microalbumin Urine 1 mg/dL
== END 2022-04-23 08:53 | disposition home or self-care (01) ==
LOC: NFLDREF 08:52
PROVIDERS: PCP Internal Medicine; Visit Provider Internal Medicine
DX: E11.9 Type 2 diabetes mellitus without complications (principal)
CPT/HCPCS: 82043; 82570

== ENCOUNTER 2023-01-19 08:42 | Outpatient (CLI) | payer OTHER, SELFPAY | END 2023-01-19 08:43 | disposition home or self-care (01) | LOC: NFLDREF 01-26 15:53 | PROVIDERS: PCP Internal Medicine; Referring Provider Internal Medicine; Visit Provider Internal Medicine | DX: Z00.00 Encounter for general adult medical examination without abnormal findings (principal); E11.9 Type 2 diabetes mellitus without complications; R73.9 Hyperglycemia, unspecified; R03.0 Elevated blood-pressure reading, without diagnosis of hypertension; I10 Essential (primary) hypertension; M10.9 Gout, unspecified; Z13.9 Encounter for screening, unspecified | CPT/HCPCS: 80053; 80061; 82043; 82570; 84153 ==

== ENCOUNTER 2024-07-27 08:30 | Outpatient (CLI) | payer OTHER, SELFPAY | END 2024-07-27 08:31 | disposition home or self-care (01) | LOC: NFLDREF 16:26 | PROVIDERS: PCP Internal Medicine; Visit Provider Internal Medicine | DX: E78.5 Hyperlipidemia, unspecified (principal); I10 Essential (primary) hypertension; E11.9 Type 2 diabetes mellitus without complications; Z79.84 Long term (current) use of oral hypoglycemic drugs | CPT/HCPCS: 80053; 80061; 82043; 82570 ==